=== PATIENT | female | born 1965 | race Caucasian/White ===

== ENCOUNTER 2016-08-19 05:39 | Day surgery (SDC) | payer BC ==
[2016-08-19] MEDS ORDERED: Lactated Ringers 1,000 ML IV SCH (06:30)
[2016-08-19] MEDS ORDERED: Ketamine HCl 50 MG/ML IV ONE (08:00)
[2016-08-19] MEDS ORDERED: DIPRIVAN 200 MG/20 ML IV ONE (08:00)
[2016-08-19 09:02] VITALS: O2SAT 98
--- NOTE | 2016-08-19 09:33 | OP ---
SURGERY DATE/TIME: 08/19/2016 0743 PREOPERATIVE DIAGNOSIS: Screening colonoscopy. POSTOPERATIVE DIAGNOSIS: Sigmoid colon polyp. PROCEDURE: Colonoscopy. SURGEON: Christiano Macias M.D. ANESTHESIA: MAC by Omer Jefferson CRNA. ESTIMATED BLOOD LOSS: Minimal. SPECIMENS: One hot forceps polypectomy from sigmoid colon. DESCRIPTION OF PROCEDURE: After informed written consent was obtained, the patient was taken to the endoscopy suite. She underwent monitored anesthesia and digital rectal exam showed normal sphincter tone. The scope was inserted in the rectum and sequentially the entire colonic mucosa was traversed. The level of cecum was reached and verified with direct visualization of ileocecal valve. There was a sessile polyp present in the sigmoid colon area this was grasped with forceps at its base and cautery was used to cauterize the lesion. Good hemostasis was achieved and the entire lesion was removed. Upon further withdrawal no other abnormalities were encountered. Retroflexion was performed prior to withdrawal. The scope was removed and the patient was transferred to the recovery room in excellent condition.
[2016-08-19 11:12] VITALS: BP 136/79; PULSE 63
== END 2016-08-19 09:35 | disposition home or self-care (01) ==
LOC: SDC 05:39
PROVIDERS: ATTEND Family Medicine
PROC: 0DBN8ZX Excision of Sigmoid Colon, Via Natural or Artificial Opening Endoscopic, Diagnostic (ICD-10-PCS; principal; 2016-08-19)
DX: D12.5 Benign neoplasm of sigmoid colon (principal)
CPT/HCPCS: 00810; 36415; 88305; J2704

== ENCOUNTER 2017-06-20 11:02 | Emergency (ER) | payer BC ==
[2017-06-20 11:12] VITALS: BP 161/89
--- NOTE | 2017-06-20 11:15 | ERPHSYRPT ---
- History of Present Illness Time Seen by Provider: 06/20/17 11:10 Source: patient Exam Limitations: no limitations Physician History: He the patient is a 52-year-old female complaining that she slipped on ice yesterday evening, falling, and injuring her left foot when it was caught underneath her during the fall. 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 Today it is hurting more and slightly swollen. She takes Celebrex for arthritis and she took a [place] that she had left over from dental work. Her past medical history significant for GERD and arthritis. Occurred: yesterday Reason for Fall: slipped, fell from standing pos Injuries/Pain Location: lower extremity Loss of Consciousness: no loss of consciousness Quality: sharpness Severity of Pain-Max: moderate Severity of Pain-Current: moderate Modifying Factors: Improves With: pain medication. Worsens With: cold therapy Associated Symptoms (Fall): denies symptoms Allergies/Adverse Reactions: No Known Drug Allergies Allergy (Verified 06/20/17 11:13) Home Medications: No Reportable Medications [No Reported Medications] 06/20/17 [History] Hx Tetanus, Diphtheria Vaccination/Date Given: Yes Hx Influenza Vaccination/Date Given: No Hx Pneumococcal Vaccination/Date Given: No - Review of Systems Constitutional: No Fever, No Chills Eyes: No Symptoms Ears, Nose, & Throat: No Symptoms Respiratory: No Cough, No Dyspnea Cardiac: No Chest Pain, No Edema, No Syncope Abdominal/Gastrointestinal: No Symptoms Genitourinary Symptoms: No Dysuria Musculoskeletal: Fall, Injury Skin: No Rash Neurological: No Dizziness, No Focal Weakness, No Sensory Changes Psychological: No Symptoms Endocrine: No Symptoms Hematologic/Lymphatic: No Symptoms Immunological/Allergic: No Symptoms All Other Systems: Reviewed and Negative - Past Medical History Pertinent Past Medical History: Yes Neurological History: Migraines ENT History: No Pertinent History Cardiac History: No Pertinent History Respiratory History: No Pertinent History Endocrine Medical History: No Pertinent History Musculoskeletal History: Arthritis GI Medical History: GERD, Gallbladder Disease, Hernia, Other History: No Pertinent History Psycho-Social History: No Pertinent History Female Reproductive Disorders: No Pertinent History Other Medical History: gall bladder, tonsils, adenoids removed. Appendix burst - Past Surgical History Past Surgical History: Yes Neuro Surgical History: No Pertinent History Cardiac: No Pertinent History Respiratory: No Pertinent History Gastrointestinal: Appendectomy, Cholecystectomy Genitourinary: No Pertinent History Musculoskeletal: No Pertinent History Female Surgical History: Tubal Ligation Other Surgical History: T&A, - Social History Smoking Status: Never smoker Exposure to second hand smoke: No Drug Use: none Patient Lives Alone: No - Nursing Vital Signs Nursing Vital Signs: Initial Vital Signs Temperature 98.1 F 06/20/17 11:09 Pulse Rate 90 06/20/17 11:09 Respiratory Rate 20 06/20/17 11:09 Blood Pressure 161/89 06/20/17 11:09 O2 Sat by Pulse Oximetry 97 06/20/17 11:09 Pain Scale Pain Intensity 10 - Tyler Coma Score Best Eye Response ([place]): (4) open spontaneously Best Verbal Response ([place]): (5) oriented Best Motor Response ([place]): (6) obeys commands [place] Total: 15 - Physical Exam General Appearance: mild distress Head Injury: no evidence of injury Eye Exam: PERRL/EOMI ENT Exam: airway nml Neck Exam: normal inspection, No tenderness Respiratory/Chest Exam: normal breath sounds, No chest tenderness, No respiratory distress Cardiovascular Exam: normal heart sounds, regular rate/rhythm Gastrointestinal Exam: soft, No tenderness, No distention, No guarding, No ecchymosis Rectal Exam: not done Back Exam: normal inspection, No vertebral tenderness Extremity Exam: limited range of motion, weight bearing, swelling, tenderness ( left mid foot) Neurologic Exam: alert, oriented x 3, cooperative, sensation nml, No motor deficits Skin Exam: normal color, warm, dry SpO2 Interpretation: normal Oxygen Delivery: Room Air - Radiology Exams Left Ankle X-ray Interpretation: Interpreted by me, Other (avulsion fracture off of talus) Left Foot X-ray Interpretation: Interpreted by me, Other (avulsion fracture off of talus) Ordered Tests: Active Orders 24 hr Category Date Time Status Jon Bandage Application -[facility] STAT Care 06/20/17 12:04 Active ANKLE (3 VIEWS) Stat Exams 06/20/17 11:17 Ordered FOOT (MINIMUM 3 VIEWS) Stat Exams 06/20/17 11:17 Ordered - Progress Progress: pain not gone completely Counseled pt/family regarding: rad results - Departure Time of Disposition: 12:38 Departure Disposition: Home Clinical Impression: Avulsion fracture of left talus Condition: Stable Critical Care Time: No Referrals: EDDIE MCCALLUM MD [Primary Care Provider] - Additional Instructions: You have an avulsion fracture of your left talus bone in your foot. You're placed in an Jon wrap. Use crutches to avoid weightbearing. You have a work excuse. Continue to take Celebrex. Take Tylenol 3 one tablet every 6 hours as needed for pain. Elevate the foot to help reduce swelling. Apply ice to the area for 10-15 minutes 3 times a day for 2-3 days. Follow up this week with your primary medical doctor.
[2017-06-20 12:28] VITALS: PULSE 87; O2SAT 99
--- NOTE | 2017-06-20 19:38 | XRAY ---
Indication: Pain following fall. Comparison: None 3 views of the left ankle demonstrates tiny heel spurs and distal fibular healed fibrous cortical defect. Lateral view demonstrates tiny minimally displaced cortical fracture involving the anterior talus with soft tissue swelling. No other bony, articular, or soft tissue abnormalities.
--- NOTE | 2017-06-20 19:41 | XRAY ---
Indication: Pain following fall. Comparison: None 3 nonweightbearing views of the left foot demonstrates tiny heel spurs and tiny cuboid accessory ossicles. Lateral view demonstrates tiny cortical fracture involving the anterior talus with soft tissue swelling. No other bony, articular, or soft tissue abnormalities.
== END 2017-06-20 13:00 | disposition home or self-care (01) ==
LOC: ED 11:02
DX: S92.152A Displaced avulsion fracture (chip fracture) of left talus, initial encounter for closed fracture (principal); W00.0XXA Fall on same level due to ice and snow, initial encounter
CPT/HCPCS: 73610; 73630; 99283

== ENCOUNTER 2017-11-07 09:41 | Observation (INO) | payer BC ==
[2017-11-07] MEDS ORDERED: BABY ASPIRIN 81 MG CHEW PO ONE (09:53)
[2017-11-07] MEDS ORDERED: BABY ASPIRIN 81 MG CHEW ONE (09:59)
--- NOTE | 2017-11-07 09:59 | ERPHSYRPT ---
- History of Present Illness Time Seen by Provider: 11/07/17 09:53 Source: patient Exam Limitations: no limitations Patient Subjective Stated Complaint: pt here for pain to epigastric and states it radiates to jaw and left arm with erick sob and tingling to arm, states has epiosode like this last night Triage Nursing Assessment: pt arrived pov, walked in, anxious, resp labored at times. chest clear, no edema Physician History: 52-year-old white female arrives with complaint of chest pain described as a pressure which begins in her low sternal region and radiates to her neck symptoms for 2 hours associated with shortness of breath no nausea no vomiting. Patient states she had similar pain which lasted 2 hours yesterday and resolved spontaneously. Past medical history includes migraines, GERD, gallbladder, hernia. Past surgical history includes cholecystectomy, tonsillectomy, appendectomy, tubal ligation. Social history patient denies tobacco or illicit drug use she states she has an occasional alcohol use. Timing/Duration: other (patient with 2 hours of chest pain yesterday .evening , which which resolved then recurred 2 hours ago.) Modifying Factors: Improves With: nothing Associated Symptoms: shortness of breath, chest pain, other (parasthesia left arm), No nausea, No vomiting, No abdominal pain, No heartburn, No diaphoresis, No cough, No chills, No fever, No headaches, No loss of appetite, No malaise, No rash, No syncope, No seizure, No weakness Allergies/Adverse Reactions: No Known Drug Allergies Allergy (Verified 11/07/17 09:55) Home Medications: Celecoxib 200 mg DAILY 11/07/17 [History] Omeprazole 40 mg DAILY 11/07/17 [History] Hx Tetanus, Diphtheria Vaccination/Date Given: Yes Hx Influenza Vaccination/Date Given: Yes Hx Pneumococcal Vaccination/Date Given: No Immunizations Up to Date: Yes - Review of Systems Constitutional: No Fever, No Chills Eyes: No Symptoms Ears, Nose, & Throat: No Symptoms Respiratory: Dyspnea, No Cough, No Cyanosis, No Dyspnea on Exertion (GARCIA), No Stridor, No Wheezing Cardiac: Chest Pain, No Edema, No Palpitations, No Syncope, No Orthopnea, No PND , No Other Abdominal/Gastrointestinal: No Abdominal Pain, No Nausea, No Vomiting, No Diarrhea Genitourinary Symptoms: No Dysuria Musculoskeletal: No Back Pain, No Neck Pain Skin: No Rash Neurological: No Dizziness, No Focal Weakness, No Sensory Changes Psychological: No Symptoms Endocrine: No Symptoms All Other Systems: Reviewed and Negative - Past Medical History Pertinent Past Medical History: Yes Neurological History: No Pertinent History ENT History: No Pertinent History Cardiac History: No Pertinent History Respiratory History: No Pertinent History Endocrine Medical History: No Pertinent History Musculoskeletal History: Osteoarthritis GI Medical History: GERD, Gallbladder Disease, Hernia, Other History: No Pertinent History Psycho-Social History: No Pertinent History Female Reproductive Disorders: No Pertinent History Other Medical History: back pain - Past Surgical History Past Surgical History: Yes Neuro Surgical History: No Pertinent History Cardiac: No Pertinent History Respiratory: No Pertinent History Gastrointestinal: Appendectomy, Cholecystectomy Genitourinary: No Pertinent History Musculoskeletal: No Pertinent History Female Surgical History: Tubal Ligation Other Surgical History: T&A, - Social History Smoking Status: Never smoker Exposure to second hand smoke: Yes Drug Use: none Patient Lives Alone: No - Female History Hx Last Menstrual Period: post Hx Now: No - Nursing Vital Signs Nursing Vital Signs: Initial Vital Signs Temperature 97.9 F 11/07/17 09:42 Pulse Rate 78 11/07/17 09:42 Respiratory Rate 22 11/07/17 09:42 Blood Pressure 167/109 11/07/17 09:42 O2 Sat by Pulse Oximetry 99 11/07/17 09:42 Pain Scale Pain Intensity 3 - Physical Exam General Appearance: other (well-developed well-nourished white female anxious oriented 3 alert) Eye Exam: PERRL/EOMI, eyes nml inspection Ears, Nose, Throat Exam: normal ENT inspection, TMs normal, pharynx normal, moist mucous membranes Neck Exam: normal inspection, non-tender, supple, full range of motion Respiratory Exam: normal breath sounds, lungs clear, No respiratory distress Cardiovascular Exam: regular rate/rhythm, normal heart sounds, normal peripheral pulses Gastrointestinal/Abdomen Exam: soft, normal bowel sounds, No tenderness, No mass Back Exam: normal inspection, normal range of motion, No CVA tenderness, No vertebral tenderness Extremity Exam: normal inspection, normal range of motion, pelvis stable Neurologic Exam: alert, oriented x 3, cooperative, philosophy faculty II-XII nml as tested, normal mood/affect, nml cerebellar function, nml station & gait, sensation nml, No motor deficits Skin Exam: normal color, warm, dry, No rash SpO2 Interpretation: normal (99%) SpO2: 99 Oxygen Delivery: Room Air - Course Nursing assessment & vital signs reviewed: Yes EKG Interpreted by Me: RATE (87 bpm), Sinus Rhythm, Left [place] Deviation, Other ( EKG: Sinus rhythm, 87 bpm, artifact present, left axis deviation, no acute ST or T wave changes noted.) - Radiology Exams Chest X-ray Interpretation: Interpreted by me (no acute disease process noted) - CT Exams Chest CT Interpretation: Tele-radiologist Report (CTA chest: Impression: 1 thyromegaly with hypodense areas in both lobes, probable complex cyst which could be further evaluated with sonography if clinically indicateD no evidence of PE or other significant cardiopulmonary abnormality) Ordered Tests: Active Orders 24 hr Category Date Time Status Solution Coordinator STAT Care 11/07/17 09:53 Active EKG-ER Only STAT Care 11/07/17 09:53 Active IV Insertion STAT Care 11/07/17 09:53 Active Pulse Oximetry (ED) STAT Care 11/07/17 09:53 Active CHEST 1 VIEW (PORTABLE) Stat Exams 11/07/17 10:14 Taken CHEST WITH CONTRAST [CT] Stat Exams 11/07/17 11:49 Taken AMYLASE Stat Lab 11/07/17 10:00 Completed CBC W DIFF Stat Lab 11/07/17 10:00 Completed CMP Stat Lab 11/07/17 10:00 Completed D-DIMER QUANTITATION Stat Lab 11/07/17 10:00 Completed LIPASE Stat Lab 11/07/17 10:00 Completed PROTIME WITH INR Stat Lab 11/07/17 10:00 Completed PTT Stat Lab 11/07/17 10:00 Completed TROPONIN Q3H Lab 11/07/17 10:00 Completed TROPONIN Q3H Lab 11/07/17 12:51 Completed TROPONIN Q3H Lab 11/07/17 16:00 Ordered TROPONIN Q3H Lab 11/07/17 19:00 Ordered TROPONIN Q3H Lab 11/07/17 22:00 Ordered Medication Summary Discontinued Medications Generic Name Dose Route Start Last Admin Trade Name Freq PRN Reason Stop Dose Admin Aspirin 324 mg 11/07/17 09:53 11/07/17 10:00 Baby Aspirin 81 Mg Chew PO 11/07/17 09:54 324 mg STAT ONE Administration Aspirin Confirm 11/07/17 09:59 Baby Aspirin 81 Mg Chew Administered 11/07/17 10:00 Dose 324 mg .ROUTE .STK-MED ONE Morphine Sulfate 4 mg 11/07/17 10:43 11/07/17 10:49 Morphine Sulfate 4 Mg Inj IV 11/07/17 10:44 4 mg STAT ONE Administration Morphine Sulfate Confirm 11/07/17 10:48 Morphine Sulfate 4 Mg Inj Administered 11/07/17 10:49 Dose 4 mg .ROUTE .STK-MED ONE Ondansetron HCl 4 mg 11/07/17 10:43 11/07/17 10:50 Zofran 4 Mg/2 Ml Vial IV 11/07/17 10:44 4 mg STAT ONE Administration Ondansetron HCl Confirm 11/07/17 10:48 Zofran 4 Mg/2 Ml Vial Administered 11/07/17 10:49 Dose 4 mg .ROUTE .STK-MED ONE Lab/Rad Data: Laboratory Result Diagrams 11/07/17 10:00 11/07/17 10:00 Laboratory Results 11/07/17 11/07/17 11/07/17 Range/Units 12:51 10:00 10:00 WBC (4.0-10.5) K/mm3 RBC (4.1-5.4) M/mm3 Hgb (12.0-16.0) gm/dl Hct (35-47) % MCV (78-100) fl MCH (26-32) pg MCHC (32-36) g/dl RDW (11.5-14.0) % Plt Count (150-450) K/mm3 MPV (6-9.5) fl Gran % (36.0-66.0) % Eos # (Auto) (0-0.5) Absolute Lymphs (auto) (1.0-4.6) Absolute Monos (auto) (0.0-1.3) Lymphocytes % (24.0-44.0) % Monocytes % (0.0-12.0) % Eosinophils % (0.00-5.0) % Basophils % (0.0-0.4) % Absolute Granulocytes (1.4-6.9) Basophils # (0-0.4) PT 11.3 (9.95-12.35) SECONDS INR 0.97 (0.8-3.0) APTT 28.3 (25.3-37.0) SECONDS D-Dimer 528 H* (215-500) ng/mL Sodium (137-145) mmol/L Potassium (3.5-5.1) mmol/L Chloride (98-107) mmol/L Carbon Dioxide (22-30) mmol/L Anion Gap (5-15) MEQ/L BUN (7-17) mg/dL Creatinine (0.52-1.04) mg/dL Estimated GFR ML/MIN Glucose (74-106) mg/dL Calcium (8.4-10.2) mg/dL Total Bilirubin (0.2-1.3) mg/dL AST (14-36) U/L ALT (0-35) U/L Alkaline Phosphatase (38-126) U/L Troponin I < 0.012 < 0.012 (0.000-0.034) ng/mL Serum Total Protein (6.3-8.2) g/dL Albumin (3.5-5.0) g/dL Amylase (30-110) U/L Lipase (23-300) U/L 11/07/17 11/07/17 Range/Units 10:00 10:00 WBC 5.8 (4.0-10.5) K/mm3 RBC 4.92 (4.1-5.4) M/mm3 Hgb 15.2 (12.0-16.0) gm/dl Hct 44.8 (35-47) % MCV 91.1 (78-100) fl MCH 30.9 (26-32) pg MCHC 33.9 (32-36) g/dl RDW 13.4 (11.5-14.0) % Plt Count 384 (150-450) K/mm3 MPV 11.2 H (6-9.5) fl Gran % 54.0 (36.0-66.0) % Eos # (Auto) 0.16 (0-0.5) Absolute Lymphs (auto) 1.74 (1.0-4.6) Absolute Monos (auto) 0.72 (0.0-1.3) Lymphocytes % 30.2 (24.0-44.0) % Monocytes % 12.5 H (0.0-12.0) % Eosinophils % 2.8 (0.00-5.0) % Basophils % 0.5 (0.0-0.4) % Absolute Granulocytes 3.11 (1.4-6.9) Basophils # 0.03 (0-0.4) PT (9.95-12.35) SECONDS INR (0.8-3.0) APTT (25.3-37.0) SECONDS D-Dimer (215-500) ng/mL Sodium 141 (137-145) mmol/L Potassium 3.9 (3.5-5.1) mmol/L Chloride 106 (98-107) mmol/L Carbon Dioxide 25 (22-30) mmol/L Anion Gap 14.4 (5-15) MEQ/L BUN 11 (7-17) mg/dL Creatinine 0.75 (0.52-1.04) mg/dL Estimated GFR > 60.0 ML/MIN Glucose 87 (74-106) mg/dL Calcium 9.4 (8.4-10.2) mg/dL Total Bilirubin 0.50 (0.2-1.3) mg/dL AST 24 (14-36) U/L ALT 21 (0-35) U/L Alkaline Phosphatase 106 (38-126) U/L Troponin I (0.000-0.034) ng/mL Serum Total Protein 7.5 (6.3-8.2) g/dL Albumin 4.5 (3.5-5.0) g/dL Amylase 56 (30-110) U/L Lipase 37 (23-300) U/L - Progress Progress: improved Progress Note: 11/07/17 13:04 This is a 52-year-old white female with history of migraines, GERD, gallbladder disease she arrives with complaint of substernal chest pain described as a pressure radiating up to her neck and radiate to her left arm associated with some paresthesias to her left arm this began initially last night around 10:00 lasted 2 hours resolved then occurred approximately 2 hours prior to presentation this morning. She states she did have shortness of breath she denies any nauseousness. Patient with the EKG that showed normal sinus rhythm 87 bpm left axis deviation no acute ST or T wave changes are noted. Patient's labs are essentially normal. Patient's troponin initial is normal. D-dimer was mildly elevated CT of the chest is remarkable for thyromegaly with hypodense areas in both lobes probably complex cyst which could be further evaluated with sonography of clinically indicated. There is no evidence of PE or other significant acute cardiopulmonary abnormality. Patient was given morphine for pain as well as her aspirin. She is rechecked. He states she still has some mild pain in the sternal region. I've discussed the case with Dr. Pulido will place patient on observation telemetry. Will continue serial cardiac enzymes continue morphine. - Departure Time of Disposition: 13:07 Departure Disposition: Observation Clinical Impression: Chest pain Qualifiers: Chest pain type: unspecified Qualified Code(s): R07.9 - Chest pain, unspecified Condition: Fair Critical Care Time: No Referrals: EDDIE MCCALLUM MD [Primary Care Provider] -
[2017-11-07 10:20] LABS: BASOPHIL % 0.5 % (0.0-0.4); Basophil (Absolute #) 0.03 (0-0.4); Eosinophil % 2.8 % (0.00-5.0); Eosinophil (Absolute #) 0.16 (0-0.5); Granulocyte Absolute (ANC) 3.11 (1.4-6.9); Hematocrit 44.8 % (35-47); Hemoglobin 15.2 gm/dl (12.0-16.0); Lymphocyte (Absolute #) 1.74 (1.0-4.6); Lymphocytes % 30.2 % (24.0-44.0); Mean Cell Volume 91.1 fl (78-100); Mean Corpuscular Hemoglobin 30.9 pg (26-32); Mean Corpuscular Hgb Concent. 33.9 g/dl (32-36); Mean Platelet Volume 11.2 fl (6-9.5); Monocyte (Absolute #) 0.72 (0.0-1.3); Monocytes % 12.5 % (0.0-12.0); Platelet Count 384 K/mm3 (150-450); Red Blood Count 4.92 M/mm3 (4.1-5.4); Red Cell Distribution Width 13.4 % (11.5-14.0); White Blood Count 5.8 K/mm3 (4.0-10.5)
[2017-11-07 10:21] LABS: INR 0.97 (0.8-3.0)
[2017-11-07 10:22] LABS: PTT 28.3 SECONDS (25.3-37.0)
[2017-11-07 10:24] LABS: ALBUMIN 4.5 g/dL (3.5-5.0); ALKALINE PHOSPHATASE 106 U/L (38-126); AMYLASE 56 U/L (30-110); ANION GAP 14.4 MEQ/L (5-15); BLOOD UREA NITROGEN 11 mg/dL (7-17); CHLORIDE 106 mmol/L (98-107); Calcium 9.4 mg/dL (8.4-10.2); Carbon Dioxide 25 mmol/L (22-30); Creatinine 1 0.75 mg/dL (0.52-1.04); Glucose 87 mg/dL (74-106); LIPASE 37 U/L (23-300); Potassium 3.9 mmol/L (3.5-5.1); SGOT/AST 24 U/L (14-36); SGPT/ALT 21 U/L (0-35); SODIUM 141 mmol/L (137-145); Total Protein 7.5 g/dL (6.3-8.2)
[2017-11-07] MEDS ORDERED: MORPHINE SULFATE 4 MG INJ IV ONE (10:43)
[2017-11-07] MEDS ORDERED: Zofran 4 MG/2 ML VIAL IV ONE (10:43)
[2017-11-07] MEDS ORDERED: Zofran 4 MG/2 ML VIAL ONE (10:48)
[2017-11-07] MEDS ORDERED: MORPHINE SULFATE 4 MG INJ ONE (10:48)
[2017-11-07] MEDS ORDERED: Zofran 4 MG/2 ML VIAL IV PRN (14:11)
[2017-11-07] MEDS ORDERED: NITRO-BID 2% UD PACKETS TOP ONE (14:42)
--- NOTE | 2017-11-07 21:41 | XRAY ---
Indication: Chest pain, short of breath, and elevated d-dimer. Multiple contiguous axial images obtained through the chest using 80 cc Isovue 370 contrast and PE protocol. Comparison: None There is satisfactory opacification of the pulmonary arteries to include the lobar and segmental branches. No filling defect or pulmonary embolus. Heart is not enlarged. Aorta is normal in course and caliber without aneurysm/dissection. Distal right paratracheal calcified node. No pathologic mediastinal/hilar lymphadenopathy. Small hiatal hernia. Visualized thyroid gland enlarged with multiple bilateral hypodense nodules/cysts. Examination of the lung parenchyma demonstrates very minimal bilateral dependent atelectasis and minimal left base fibrosis/scarring. No suspicious pulmonary mass, infiltrate, or effusion. Bony thorax intact with minimal degenerative changes throughout the spine. Limited upper abdomen including adrenal glands unremarkable. Impression: 1. Negative pulmonary embolus. No acute cardiopulmonary abnormalities. 2. Small hiatal hernia. 3. Thyromegaly with multiple bilateral hypodense nodules/cysts. Thyroid sonogram may yield further information if clinically warranted. Comment: Preliminary interpretation was made by C. No discrepancy. CTDI 26.67
--- NOTE | 2017-11-07 21:41 | XRAY ---
Indication: Chest pain. Comparison: January 02, 2015. Portable chest remains clear. Heart and mediastinal structures within normal limits. Bony thorax intact. Impression: Stable nonacute chest.
[2017-11-07] MEDS: TYLENOL 325 MG PO PRN (23:39)
[2017-11-08] MEDS: MORPHINE SULFATE 4 MG INJ IV PRN ×3 (06:23→14:59)
[2017-11-08 06:38] LABS: BASOPHIL % 0.6 % (0.0-0.4); Basophil (Absolute #) 0.03 (0-0.4); Eosinophil % 3.1 % (0.00-5.0); Eosinophil (Absolute #) 0.16 (0-0.5); Granulocyte Absolute (ANC) 3.46 (1.4-6.9); Hematocrit 40.2 % (35-47); Hemoglobin 13.5 gm/dl (12.0-16.0); Lymphocyte (Absolute #) 1.04 (1.0-4.6); Lymphocytes % 19.8 % (24.0-44.0); Mean Cell Volume 92.8 fl (78-100); Mean Corpuscular Hemoglobin 31.2 pg (26-32); Mean Corpuscular Hgb Concent. 33.6 g/dl (32-36); Mean Platelet Volume 11.3 fl (6-9.5); Monocyte (Absolute #) 0.55 (0.0-1.3); Monocytes % 10.5 % (0.0-12.0); Platelet Count 333 K/mm3 (150-450); Red Blood Count 4.33 M/mm3 (4.1-5.4); Red Cell Distribution Width 13.4 % (11.5-14.0); White Blood Count 5.2 K/mm3 (4.0-10.5)
[2017-11-08 06:45] LABS: ALBUMIN 3.9 g/dL (3.5-5.0); ALKALINE PHOSPHATASE 88 U/L (38-126); ANION GAP 11.3 MEQ/L (5-15); BLOOD UREA NITROGEN 11 mg/dL (7-17); CHLORIDE 106 mmol/L (98-107); Calcium 8.9 mg/dL (8.4-10.2); Carbon Dioxide 27 mmol/L (22-30); Creatinine 1 0.68 mg/dL (0.52-1.04); Glucose 98 mg/dL (74-106); Potassium 3.7 mmol/L (3.5-5.1); SGOT/AST 22 U/L (14-36); SGPT/ALT 19 U/L (0-35); SODIUM 140 mmol/L (137-145); Total Protein 6.6 g/dL (6.3-8.2)
[2017-11-08] MEDS ORDERED: Sodium Chloride 0.9% 10 ML FLUSH Syringe IV PRN (08:11)
--- NOTE | 2017-11-08 08:48 | PCM.HP ---
History of Present Illness - Chief Complaint Chief Complaint: chest pain History of Present Illness: is a 52 year old female who reported to the ER with a 2 day history of pressure and heaviness in the chest. She denies nausea, vomiting, shortness of breath or cough. Had some relief with nitro but caused a terrible headache, chest is still hurting. no burning in the chest. - Review of Systems Constitutional: No Fever, No Chills Respiratory: No Cough, No Short Of Breath Cardiac: Chest Pain Abdominal/Gastrointestinal: No Abdominal Pain, No Nausea, No Vomiting, No Diarrhea Genitourinary Symptoms: No Dysuria Skin: No Rash All Other Systems: Reviewed and Negative Medications & Allergies Home Medications: Home Medication List Celecoxib 200 mg DAILY 11/07/17 [History Confirmed 11/07/17] Omeprazole 40 mg DAILY 11/07/17 [History Confirmed 11/07/17] Allergies/Adverse Reactions: Allergies Allergy/AdvReac Type Severity Reaction Status Date / Time No Known Drug Allergies Allergy Verified 11/07/17 09:55 - Past Medical History Past Medical History: Yes Neurological History: No Pertinent History ENT History: No Pertinent History Cardiac History: No Pertinent History Respiratory History: No Pertinent History Endocrine Medical History: No Pertinent History Musculoskelatal History: Osteoarthritis GI Medical History: GERD, Gallbladder Disease, Hernia, Other History: No Pertinent History Pyscho-Social History: No Pertinent History Reproductive Disorders: No Pertinent History Comment: back pain - Female History Hx Last Menstrual Period: post Are you now?: No - Past Surgical History Past Surgical History: Yes Neuro Surgical History: No Pertinent History Cardiac History: No Pertinent History Respiratory Surgery: No Pertinent History GI Surgical History: Appendectomy, Cholecystectomy Genitourinary Surgical Hx: No Pertinent History Musculskeletal Surgical Hx: No Pertinent History Female Surgical History: Tubal Ligation Other Surgical History: T&A, - Social History Smoking Status: Never smoker Exposure to second hand smoke: Yes Alcohol: None Drug Use: none - Physical Exam Vital Signs: Vital Signs - 24 hr Temp Pulse Pulse Resp BP Pulse Ox 11/08/17 07:31 98 11/08/17 07:16 98.2 F 51 L 16 139/67 100 11/08/17 06:20 72 141/84 100 11/08/17 04:04 97.6 F 69 12 127/58 99 11/08/17 00:07 98.0 F 46 L 16 121/55 99 11/07/17 19:56 98.0 F 55 L 14 116/64 98 11/07/17 15:00 98.1 F 57 L 18 152/70 96 11/07/17 14:11 98.1 F 57 L 18 152/70 96 11/07/17 13:50 98.1 F 57 L 18 152/70 96 11/07/17 13:38 99 11/07/17 13:18 63 18 135/84 95 11/07/17 10:54 57 L 18 118/83 98 11/07/17 09:57 100 11/07/17 09:54 70 11/07/17 09:42 97.9 F 78 22 167/109 99 Oxygen-Last 24 hours O2 Percentage 2 Liters = 28% O2 Percentage 2 Liters = 28% O2 Percentage 2 Liters = 28% O2 Percentage 2 Liters = 28% O2 Percentage 2 Liters = 28% General Appearance: no apparent distress, alert Eye Exam: PERRL/EOMI, eyes nml inspection Respiratory Exam: normal breath sounds, lungs clear, No respiratory distress Cardiovascular Exam: regular rate/rhythm, normal heart sounds, normal peripheral pulses Gastrointestinal/Abdomen Exam: soft, normal bowel sounds, No tenderness, No mass Extremity Exam: normal inspection, normal range of motion, pelvis stable Skin Exam: normal color, warm, dry, No rash Results - Labs Lab/Micro Results: Lab Results-Last 24 Hours 11/07/17 11/07/17 11/07/17 Range/Units 10:00 10:00 10:00 WBC 5.8 (4.0-10.5) K/mm3 RBC 4.92 (4.1-5.4) M/mm3 Hgb 15.2 (12.0-16.0) gm/dl Hct 44.8 (35-47) % MCV 91.1 (78-100) fl MCH 30.9 (26-32) pg MCHC 33.9 (32-36) g/dl RDW 13.4 (11.5-14.0) % Plt Count 384 (150-450) K/mm3 MPV 11.2 H (6-9.5) fl Gran % 54.0 (36.0-66.0) % Eos # (Auto) 0.16 (0-0.5) Absolute Lymphs (auto) 1.74 (1.0-4.6) Absolute Monos (auto) 0.72 (0.0-1.3) Lymphocytes % 30.2 (24.0-44.0) % Monocytes % 12.5 H (0.0-12.0) % Eosinophils % 2.8 (0.00-5.0) % Basophils % 0.5 (0.0-0.4) % Absolute Granulocytes 3.11 (1.4-6.9) Basophils # 0.03 (0-0.4) PT 11.3 (9.95-12.35) SECONDS INR 0.97 (0.8-3.0) APTT 28.3 (25.3-37.0) SECONDS D-Dimer 528 H* (215-500) ng/mL Sodium 141 (137-145) mmol/L Potassium 3.9 (3.5-5.1) mmol/L Chloride 106 (98-107) mmol/L Carbon Dioxide 25 (22-30) mmol/L Anion Gap 14.4 (5-15) MEQ/L BUN 11 (7-17) mg/dL Creatinine 0.75 (0.52-1.04) mg/dL Estimated GFR > 60.0 ML/MIN Glucose 87 (74-106) mg/dL Calcium 9.4 (8.4-10.2) mg/dL Total Bilirubin 0.50 (0.2-1.3) mg/dL AST 24 (14-36) U/L ALT 21 (0-35) U/L Alkaline Phosphatase 106 (38-126) U/L Troponin I (0.000-0.034) ng/mL Serum Total Protein 7.5 (6.3-8.2) g/dL Albumin 4.5 (3.5-5.0) g/dL Amylase 56 (30-110) U/L Lipase 37 (23-300) U/L 11/07/17 11/07/17 11/07/17 Range/Units 10:00 12:51 16:10 WBC (4.0-10.5) K/mm3 RBC (4.1-5.4) M/mm3 Hgb (12.0-16.0) gm/dl Hct (35-47) % MCV (78-100) fl MCH (26-32) pg MCHC (32-36) g/dl RDW (11.5-14.0) % Plt Count (150-450) K/mm3 MPV (6-9.5) fl Gran % (36.0-66.0) % Eos # (Auto) (0-0.5) Absolute Lymphs (auto) (1.0-4.6) Absolute Monos (auto) (0.0-1.3) Lymphocytes % (24.0-44.0) % Monocytes % (0.0-12.0) % Eosinophils % (0.00-5.0) % Basophils % (0.0-0.4) % Absolute Granulocytes (1.4-6.9) Basophils # (0-0.4) PT (9.95-12.35) SECONDS INR (0.8-3.0) APTT (25.3-37.0) SECONDS D-Dimer (215-500) ng/mL Sodium (137-145) mmol/L Potassium (3.5-5.1) mmol/L Chloride (98-107) mmol/L Carbon Dioxide (22-30) mmol/L Anion Gap (5-15) MEQ/L BUN (7-17) mg/dL Creatinine (0.52-1.04) mg/dL Estimated GFR ML/MIN Glucose (74-106) mg/dL Calcium (8.4-10.2) mg/dL Total Bilirubin (0.2-1.3) mg/dL AST (14-36) U/L ALT (0-35) U/L Alkaline Phosphatase (38-126) U/L Troponin I < 0.012 < 0.012 < 0.012 (0.000-0.034) ng/mL Serum Total Protein (6.3-8.2) g/dL Albumin (3.5-5.0) g/dL Amylase (30-110) U/L Lipase (23-300) U/L 11/07/17 11/07/17 11/08/17 Range/Units 19:00 22:10 05:43 WBC 5.2 (4.0-10.5) K/mm3 RBC 4.33 (4.1-5.4) M/mm3 Hgb 13.5 (12.0-16.0) gm/dl Hct 40.2 (35-47) % MCV 92.8 (78-100) fl MCH 31.2 (26-32) pg MCHC 33.6 (32-36) g/dl RDW 13.4 (11.5-14.0) % Plt Count 333 (150-450) K/mm3 MPV 11.3 H (6-9.5) fl Gran % 66.0 (36.0-66.0) % Eos # (Auto) 0.16 (0-0.5) Absolute Lymphs (auto) 1.04 (1.0-4.6) Absolute Monos (auto) 0.55 (0.0-1.3) Lymphocytes % 19.8 L (24.0-44.0) % Monocytes % 10.5 (0.0-12.0) % Eosinophils % 3.1 (0.00-5.0) % Basophils % 0.6 (0.0-0.4) % Absolute Granulocytes 3.46 (1.4-6.9) Basophils # 0.03 (0-0.4) PT (9.95-12.35) SECONDS INR (0.8-3.0) APTT (25.3-37.0) SECONDS D-Dimer (215-500) ng/mL Sodium (137-145) mmol/L Potassium (3.5-5.1) mmol/L Chloride (98-107) mmol/L Carbon Dioxide (22-30) mmol/L Anion Gap (5-15) MEQ/L BUN (7-17) mg/dL Creatinine (0.52-1.04) mg/dL Estimated GFR ML/MIN Glucose (74-106) mg/dL Calcium (8.4-10.2) mg/dL Total Bilirubin (0.2-1.3) mg/dL AST (14-36) U/L ALT (0-35) U/L Alkaline Phosphatase (38-126) U/L Troponin I < 0.012 < 0.012 (0.000-0.034) ng/mL Serum Total Protein (6.3-8.2) g/dL Albumin (3.5-5.0) g/dL Amylase (30-110) U/L Lipase (23-300) U/L 11/08/17 Range/Units 05:43 WBC (4.0-10.5) K/mm3 RBC (4.1-5.4) M/mm3 Hgb (12.0-16.0) gm/dl Hct (35-47) % MCV (78-100) fl MCH (26-32) pg MCHC (32-36) g/dl RDW (11.5-14.0) % Plt Count (150-450) K/mm3 MPV (6-9.5) fl Gran % (36.0-66.0) % Eos # (Auto) (0-0.5) Absolute Lymphs (auto) (1.0-4.6) Absolute Monos (auto) (0.0-1.3) Lymphocytes % (24.0-44.0) % Monocytes % (0.0-12.0) % Eosinophils % (0.00-5.0) % Basophils % (0.0-0.4) % Absolute Granulocytes (1.4-6.9) Basophils # (0-0.4) PT (9.95-12.35) SECONDS INR (0.8-3.0) APTT (25.3-37.0) SECONDS D-Dimer (215-500) ng/mL Sodium 140 (137-145) mmol/L Potassium 3.7 (3.5-5.1) mmol/L Chloride 106 (98-107) mmol/L Carbon Dioxide 27 (22-30) mmol/L Anion Gap 11.3 (5-15) MEQ/L BUN 11 (7-17) mg/dL Creatinine 0.68 (0.52-1.04) mg/dL Estimated GFR > 60.0 ML/MIN Glucose 98 (74-106) mg/dL Calcium 8.9 (8.4-10.2) mg/dL Total Bilirubin 0.50 (0.2-1.3) mg/dL AST 22 (14-36) U/L ALT 19 (0-35) U/L Alkaline Phosphatase 88 (38-126) U/L Troponin I (0.000-0.034) ng/mL Serum Total Protein 6.6 (6.3-8.2) g/dL Albumin 3.9 (3.5-5.0) g/dL Amylase (30-110) U/L Lipase (23-300) U/L - Radiology Impressions Radiology Exams & Impressions: Radiology Procedures Category Date Time Status CHEST 1 VIEW (PORTABLE) Stat Exams 11/07/17 10:14 Completed CHEST WITH CONTRAST [CT] Stat Exams 11/07/17 11:49 Completed - Other Procedures and Tests Respiratory Therapy 11/07/17 19:00 EKG ROUTINE 11/08/17 07:31 Oxygen NASAL CANNULA 2 lpm 11/09/17 05:00 EKG ROUTINE 11/10/17 05:00 EKG ROUTINE Assessment/Plan (1) Chest pain Current Visit: Yes Status: Acute Qualifiers: Chest pain type: unspecified Qualified Code(s): R07.9 - Chest pain, unspecified Assessment & Plan: [place] ruled out but heaviness in the chest persists, will consult [facility]. Code(s): R07.9 - CHEST PAIN, UNSPECIFIED
[2017-11-08] MEDS ORDERED: Protonix 40MG Tablet PO SCH (10:00)
[2017-11-08] MEDS ORDERED: Ecotrin 325 MG PO SCH (10:00)
[2017-11-08] MEDS: Sodium Chloride 0.9% 10 ML FLUSH Syringe IV SCH ×2 (10:29→21:31)
[2017-11-08] MEDS: Protonix 40MG Tablet PO SCH (21:31)
[2017-11-08] MEDS ORDERED: Pepcid 20 MG PO SCH (22:00)
[2017-11-09] MEDS: Sodium Chloride 0.9% 10 ML FLUSH Syringe IV SCH ×3 (05:08→22:07)
[2017-11-09 05:52] LABS: Risk Ratio 4.6
[2017-11-09 06:23] LABS: TSH, 3RD Generation 0.916 mIU/L (0.47-4.68)
[2017-11-09 07:41] LABS: Appearance CLOUDY (CLEAR); Bacteria MANY /HPF (NEGATIVE); Bilirubin NEGATIVE (NEGATIVE); Blood 50 Ery/ul (0-5); Epithelial Cells MODERATE /HPF (FEW); Glucose NEGATIVE (NEGATIVE); Ketones NEGATIVE (NEGATIVE); Leukocyte Esterase 2+ (NEGATIVE); Nitrite POSITIVE (NEGATIVE); Protein,Urine Dip 30 (Negative); Urobilinogen NORMAL mg/dL (0-1); WBC >100 /HPF (0-5)
[2017-11-09] MEDS: TYLENOL 325 MG PO PRN ×2 (07:48→19:33)
[2017-11-09] MEDS: celeBREX 100 MG PO SCH (09:10)
[2017-11-09] MEDS: Ecotrin 325 MG PO SCH (09:10)
[2017-11-09] MEDS: ROCEPHIN 1 Gm-D5w 50 ml Bag** 1 G/50 ML IVPB IV SCH (09:12)
[2017-11-09] MEDS ORDERED: ECOTRIN 81 MG PO SCH (10:00)
--- NOTE | 2017-11-09 15:20 | PCM.DS ---
Discharge Summary Date of Admission: 11/07/17 14:08 Admitting Physician: BITA CANTU Consults: Consults on Case 11/08/17 07:58 Consult Cardiology ROUTINE Primary Care Provider: EDDIE MCCALLUM Allergies Allergies No Known Drug Allergies Allergy (Verified 11/07/17 09:55) Hospital Summary - Hospital Course Hospital Course: Pt admitted through ER with chest pain. D-dimer was elevated but CTA of the chest negative for PE (did reveal several thyroid cysts that may merit further imaging). Her chest pain continued even after [place] was ruled out with negative troponins, so [facility] was consulted. Dr. Farrell ordered an echocardiogram and would like pt to have an outpatient stress test. This morning pt is still c/o 3/10 chest pain. She does have a known hiatal hernia. Her echo was done. She is tolerating po, although her appetite is decreased. She had a HR down to 45 overnight, but most recorded vitals show HR in the 50s- 60s. When Dr. Farrell gets in this afternoon, I will consult with him and if ok to d/c home she will be discharged today. - Vitals & Intake/Output Vital Signs: Vital Signs Temperature 98.2 F 11/09/17 11:25 Pulse Rate 71 11/09/17 11:25 Respiratory Rate 18 11/09/17 11:25 Blood Pressure 140/89 11/09/17 11:25 O2 Sat by Pulse Oximetry 97 11/09/17 11:25 Oxygen-Last Documented O2 Percentage 2 Liters = 28% Intake & Output: Intake & Output 11/07/17 11/08/17 11/09/17 11/10/17 11:59 11:59 11:59 11:59 Intake Total 820 600 Output Total 801 1700 Balance 19 -1100 Weight 88.451 kg 94.4 kg 94.4 kg - Lab Result Diagrams: 11/08/17 05:43 11/08/17 05:43 Lab Results-Last 24 Hrs: Lab Results-Last 24 Hours 11/09/17 11/09/17 11/09/17 Range/Units 05:25 05:25 05:25 ESR 8 (0-20) mm/hr NT-Pro-B Natriuret Pep 132 (0-900) pg/mL Triglycerides 117 (30-150) mg/dL Cholesterol 192 (50-200) mg/dL LDL Cholesterol 99 (30-100) mg/dL HDL Cholesterol 42 (40-60) mg/dL Heart Disease Risk Ratio 4.6 Free T4 Direct 1.37 (0.76-1.46) ng/dL TSH 3rd Generation 0.916 (0.47-4.68) mIU/L Ur Collection Type Urine Color (YELLOW) Urine Appearance (CLEAR) Urine pH (5-6) Ur Specific Cement (1.005-1.025) Urine Protein (Negative) Urine Ketones (NEGATIVE) Urine Blood (0-5) [place]/ul Urine Nitrite (NEGATIVE) Urine Bilirubin (NEGATIVE) Urine Urobilinogen (0-1) mg/dL Ur Leukocyte Esterase (NEGATIVE) Urine Microscopic RBC (0-2) /HPF Urine Microscopic WBC (0-5) /HPF Ur Epithelial Cells (FEW) /HPF Urine Bacteria (NEGATIVE) /HPF Urine Glucose (NEGATIVE) mg/dL Specimen Received 11/09/17 Range/Units 06:36 ESR (0-20) mm/hr NT-Pro-B Natriuret Pep (0-900) pg/mL Triglycerides (30-150) mg/dL Cholesterol (50-200) mg/dL LDL Cholesterol (30-100) mg/dL HDL Cholesterol (40-60) mg/dL Heart Disease Risk Ratio Free T4 Direct (0.76-1.46) ng/dL TSH 3rd Generation (0.47-4.68) mIU/L Ur Collection Type CLEAN CATCH Urine Color YELLOW (YELLOW) Urine Appearance CLOUDY (CLEAR) Urine pH 5.0 (5-6) Ur Specific [place]ement 1.020 (1.005-1.025) Urine Protein 30 (Negative) Urine Ketones NEGATIVE (NEGATIVE) Urine Blood 50 (0-5) [place]/ul Urine Nitrite POSITIVE (NEGATIVE) Urine Bilirubin NEGATIVE (NEGATIVE) Urine Urobilinogen NORMAL (0-1) mg/dL Ur Leukocyte Esterase 2+ (NEGATIVE) Urine Microscopic RBC 5-10 (0-2) /HPF Urine Microscopic WBC >100 (0-5) /HPF Ur Epithelial Cells MODERATE (FEW) /HPF Urine Bacteria MANY (NEGATIVE) /HPF Urine Glucose NEGATIVE (NEGATIVE) mg/dL Specimen Received 11/09/17 0630 - Radiology Exams Ordered Rad Exams-Entire Visit: Radiology Procedures Category Date Time Status ECHO W/2D AND DOPPLER [US] Routine Exams 11/09/17 07:30 Taken - Procedures and Test Procedures and Tests throughout Hospitalization: Therapy Orders & Screens 11/07/17 19:00 EKG ROUTINE Comment: Diagnosis: chest pain 11/08/17 05:00 EKG ROUTINE Comment: Diagnosis: chest pain 11/08/17 06:52 EKG ROUTINE Comment: Diagnosis: chest pain 11/08/17 07:31 Oxygen NASAL CANNULA 2 lpm Comment: Diagnosis: chest pain 11/08/17 17:01 Cardiolite Stress Test-RT ONCE Comment: OUTPATIENT LEXISCAN STRESS TEST Reason For Exam: CHEST PAIN Diagnosis: chest pain 11/09/17 05:00 EKG ROUTINE Comment: Diagnosis: chest pain 11/10/17 05:00 EKG ROUTINE Comment: Diagnosis: chest pain Discharge Exam General Appearance: no apparent distress, alert, obese Neurologic Exam: oriented x 3, cooperative Skin Exam: normal color, warm, dry, No rash Respiratory Exam: normal breath sounds, lungs clear, No crackles/rales, No rhonchi, No wheezing Cardiovascular Exam: regular rate/rhythm, normal heart sounds, No murmur Gastrointestinal/Abdomen Exam: soft, normal bowel sounds, No tenderness Extremity Exam: No pedal edema, No swelling Final Diagnosis/Problem List - Final Discharge Diagnosis/Problem (1) Chest pain Current Visit: Yes Status: Acute Assessment & Plan: Atypical. I spoke with Dr. Farrell. Will recheck pt this afternoon, if still having significant pain (virgil with activity)would advise her pain could be due to hiatal hernia or could be cardiac; the only way to know for sure would be a heart catheterization. He would like her to definitely have a stress test ( cardiolyte) and is fine to get that here. Her echocardiogram was basically normal (EF 50%, mild mitral regurgitation, no effusion, no significant valvular dysfunction). (2) Hiatal hernia Current Visit: Yes Status: Acute Assessment & Plan: Noted to be "small" on CTA chest - Discharge Disposition: Home, Self-Care Condition: Fair Prescriptions: No Action Omeprazole 40 mg DAILY Celecoxib 200 mg DAILY Additional Instructions: Cardiolite Stress test scheduled on November 18 at 6:30 AM in Respiratory Department. Nothing to eat or drink after midnight prior to test. No caffeine for 24 hours prior to test. No beta blockers or calcium channel blockers for 48 hours prior to test. Follow up with Dr[facility] Farrell at [facility] after stress test. Follow up with: Andrew Farrell MD [CONSULTING PHYSICIAN] - Call for Appointment
[2017-11-09] MEDS: Imdur 30 MG PO SCH (16:11)
[2017-11-09] MEDS: Protonix 40MG Tablet PO SCH (22:06)
[2017-11-10] MEDS: MORPHINE SULFATE 4 MG INJ IV PRN (00:26)
[2017-11-10] MEDS: TYLENOL 325 MG PO PRN ×2 (05:12→11:04)
[2017-11-10] MEDS: Sodium Chloride 0.9% 10 ML FLUSH Syringe IV SCH (05:13)
[2017-11-10] MEDS: Imdur 30 MG PO SCH (09:01)
[2017-11-10] MEDS: ROCEPHIN 1 Gm-D5w 50 ml Bag** 1 G/50 ML IVPB IV SCH (09:01)
[2017-11-10] MEDS: Ecotrin 325 MG PO SCH (09:01)
[2017-11-10] MEDS: celeBREX 100 MG PO SCH (09:01)
--- NOTE | 2017-11-10 10:33 | PCM.DS ---
Discharge Summary Date of Admission: 11/07/17 14:08 Admitting Physician: BITA CANTU Consults: Consults on Case 11/08/17 07:58 Consult Cardiology ROUTINE Primary Care Provider: EDDIE MCCALLUM Allergies Allergies No Known Drug Allergies Allergy (Verified 11/07/17 09:55) Hospital Summary - Hospital Course Hospital Course: patient was admitted with chest pain, [place] ruled out but persisted. had cardiology consult, prelim report on echo ok. feeling better, has some headache from Imdur otherwise no chest pain at discharge, plan for lexiscan as outpatient. - Vitals & Intake/Output Vital Signs: Vital Signs Temperature 97.8 F 11/10/17 07:13 Pulse Rate 77 11/10/17 07:13 Respiratory Rate 16 11/10/17 07:13 Blood Pressure 123/59 11/10/17 07:13 O2 Sat by Pulse Oximetry 98 11/10/17 07:13 Oxygen-Last Documented O2 Percentage 2 Liters = 28% Intake & Output: Intake & Output 11/07/17 11/08/17 11/09/17 11/10/17 11:59 11:59 11:59 11:59 Intake Total 636 722 3373 Output Total 801 1700 2700 Balance 19 -1100 -1620 Weight 88.451 kg 94.4 kg 94.4 kg 94 kg - Lab Result Diagrams: 11/08/17 05:43 11/08/17 05:43 - Radiology Exams Ordered Rad Exams-Entire Visit: Radiology Procedures Category Date Time Status ECHO W/2D AND DOPPLER [US] Routine Exams 11/09/17 07:30 Taken - Procedures and Test Procedures and Tests throughout Hospitalization: Therapy Orders & Screens 11/07/17 19:00 EKG ROUTINE Comment: Diagnosis: chest pain 11/08/17 05:00 EKG ROUTINE Comment: Diagnosis: chest pain 11/08/17 06:52 EKG ROUTINE Comment: Diagnosis: chest pain 11/08/17 07:31 Oxygen NASAL CANNULA 2 lpm Comment: Diagnosis: chest pain 11/08/17 17:01 Cardiolite Stress Test-RT ONCE Comment: OUTPATIENT LEXISCAN STRESS TEST Reason For Exam: CHEST PAIN Diagnosis: chest pain 11/09/17 05:00 EKG ROUTINE Comment: Diagnosis: chest pain 11/10/17 05:00 EKG ROUTINE Comment: Diagnosis: chest pain Discharge Exam General Appearance: no apparent distress, alert Respiratory Exam: normal breath sounds, lungs clear, No respiratory distress Cardiovascular Exam: regular rate/rhythm, normal heart sounds Gastrointestinal/Abdomen Exam: soft, No tenderness, No mass Extremity Exam: normal inspection, normal range of motion Final Diagnosis/Problem List - Final Discharge Diagnosis/Problem (1) Chest pain Current Visit: Yes Status: Acute Assessment & Plan: [place] ruled out, will have OP lexiscan and f/u with [facility], continue Imdur - Discharge Disposition: Home, Self-Care Condition: Fair Prescriptions: New Sulfamethoxazole/Trimethoprim [Bactrim Ds Tablet] 1 each PO BID #10 tablet Aspirin EC 81 mg [Ecotrin 81 mg] 81 mg PO DAILY #30 tablet Isosorbide Mononitrate 30 mg [Imdur 30 MG] 30 mg PO DAILY #30 tab Continue Omeprazole 40 mg DAILY Celecoxib 200 mg DAILY Additional Instructions: Cardiolite Stress test scheduled on November 18 at 6:30 AM in Respiratory Department. Nothing to eat or drink after midnight prior to test. No caffeine for 24 hours prior to test. No beta blockers or calcium channel blockers for 48 hours prior to test. Follow up with Dr. Farrell at [facility] after stress test. Follow up with: Andrew Farrell MD [CONSULTING PHYSICIAN] - Call for Appointment
--- NOTE | 2017-11-10 11:09 | ECHO ---
DATE OF TEST: 11/09/2017 INDICATION: Chest pain. FINDINGS: 1) Normal left ventricular wall thickness and cavity size with normal left ventricular systolic function. Overall left ventricular ejection fraction is 55%. No wall motion abnormalities were noted. The inflow Doppler examination is normal for patient's age. Right ventricle is normal in size and systolic function. 2) Atria within normal limits in size. 3) Borderline mitral valve prolapse with mild 1+ mitral regurgitation. Tricuspid valve is structurally normal with trace tricuspid regurgitation and estimated PA systolic pressure in normal range. The aortic valve appears to be trileaflet with normal valve excursion. NO aortic insufficiency was noted. Pulmonic valve is grossly normal. 4) No pericardial effusion. IMPRESSION: 1) NORMAL LEFT VENTRICULAR SIZE AND SYSTOLIC FUNCTION. OVERALL LEFT VENTRICULAR EJECTION FRACTION IS 55%. 2) MILD 1+ MITRAL REGURGITATION.
[2017-11-10 11:13] VITALS: BP 140/79; PULSE 83; O2SAT 97
== END 2017-11-10 11:30 | disposition home or self-care (01) ==
LOC: ED 09:41 → MED SURG 14:08
PROVIDERS: ADMIT Family Medicine; ATTEND Family Medicine
DX: R07.89 Other chest pain (principal); K44.9 Diaphragmatic hernia without obstruction or gangrene; M19.90 Unspecified osteoarthritis, unspecified site; K21.9 Gastro-esophageal reflux disease without esophagitis
CPT/HCPCS: 36000; 36415; 71045; 71260; 80053; 80061; 81000; 82150; 83690; 83721; 83880; 84439; 84443; 84484; 85025; 85379; 85610; 85652; 85730; 87077; 87086; 87186; 93005; 93041; 93268; 93306; 94760; 96374; 96375; 99285; J0696; J2270; J2405; Q3014; A9270-GY; G0378

== ENCOUNTER 2018-01-17 08:20 | Day surgery (SDC) | payer BC ==
[~2018-01-17 08:20] MED LIST: Lactated Ringers 1,000 ML IV ONE; Lactated Ringers 1,000 ML IV SCH
[2018-01-17] MEDS ORDERED: DIPRIVAN 200 MG/20 ML IV ONE ×2 (08:21)
[2018-01-17] MEDS ORDERED: Ketamine HCl 50 MG/ML IV ONE ×2 (08:21)
--- NOTE | 2018-01-17 08:37 | HP ---
DATE OF SURGERY: 01/17/2018 HISTORY OF PRESENT ILLNESS: The patient is a 53 year-old problem with solids getting stuck upper esophagus, history of hiatal hernia in the past, some epigastric pain at times. PAST MEDICAL HISTORY: Arthritis and some reflux. PAST SURGICAL HISTORY: Cholecystectomy in the past. MEDICATIONS: Protonix, Celebrex, Zantac. ALLERGIES: NKDA. FAMILY HISTORY: Cancer, heart disease, hypertension, diabetes. SOCIAL HISTORY: Denies smoking but she is exposed to secondhand smoke according to the patient. She reports occasion alcohol use denies abuse. REVIEW OF SYSTEMS: Twelve systems reviewed per admission assessment. No chest pain or palpitations other systems negative or noncontributory as above and per preadmission questionnaire. PHYSICAL EXAMINATION: GENERAL: No acute distress. HEENT: Sclerae nonicteric. NECK: No JVD. CHEST: Equal excursion, nonlabored breathing. CVS: Regular rate and rhythm. ABDOMEN: Soft, mild tenderness epigastrium. No peritoneal signs. EXTREMITIES: No significant edema. NEURO: Alert, moving extremities symmetrically. No gross motor deficits noted. IMPRESSION: Dysphagia upper esophagus as well as epigastric pain. I feel the patient will benefit from EGD possible biopsy, possible dilatation pending operative findings. Risks and benefits explained in detail including but not limited to bleeding or infection, small risk of bowel injury or perforation possibly requiring open procedure, risk of missed or nondiagnosis or incomplete exam possibly requiring barium swallow, other studies or procedures. She understands as well as possible dilatation, risk of perforation. She understands if dilatation does improve her swallowing sometimes it needs to be repeated. She also understands this is more of a functional than neurological issue that dilatation may not improve swallowing that she may need further work up and/or testing or other procedures. She understands and agrees to the planned procedure and will proceed with EGD, possible biopsy, possible dilatation as an outpatient.
[2018-01-17 11:57] VITALS: O2SAT 100
[2018-01-17 11:59] VITALS: BP 123/71; PULSE 58
--- NOTE | 2018-01-17 15:47 | OP ---
SURGERY DATE/TIME: 01/17/2018 1033 PREOPERATIVE DIAGNOSES: Dysphagia. POSTOPERATIVE DIAGNOSES: 1) Minimal gastritis. 2) Small sliding hiatal hernia. 3) Very short segment less than 5 mm possible early Smith's esophagus versus distal gastroesophagitis biopsy pending. 4) Symptomatic proximal esophageal narrowing and spasm. PROCEDURES: 1) EGD with cold biopsy of the antrum to evaluate for Helicobacter pylori. 2) Cold biopsy distal esophagus to evaluate for early Smith's esophagus. 3) Proximal esophageal dilatation (size 20 balloon). SURGEON: Dr. Aurelio Vallejo. ANESTHESIA: MAC. ESTIMATED BLOOD LOSS: Minimal. INDICATIONS: As noted above. Risks and benefits explained in detail and not limited to and consent obtained. DESCRIPTION OF PROCEDURE AND FINDINGS: The patient is taken to the operating room. MAC anesthesia introduced. After official time out and no disagreement with planned procedure, bite block positioned. Video gastroscope passed down the esophagus. There was a narrowed area in the proximal esophagus. No obvious mass to biopsy. There was just a symptomatic narrowed area. It was felt that he would benefit from dilatation at the end of the procedure. The scope was able to be passed back through here through the stomach to the patent pylorus, to the junction of the second and third portion of the duodenum. Duodenum and duodenal bulb grossly unremarkable. Back in the stomach she had some mild erythema in the stomach. Question of very early mild gastritis versus gastropathy. A cold biopsy taken to evaluate for Helicobacter pylori. There was no evidence of any ulcers, masses or other mucosal lesions. On retroflex in the gastroesophageal junction there was small hiatal hernia that did not appear to warrant surgical intervention at this point. The scope was straightened. Gastroesophageal junction was about 38 cm. There was a little fingerlette of fingerlette and a half of short segment of less than 5 mm with question of early Smith's versus just normal variation of the gastroesophageal junction versus distal gastroesophagitis. Cold biopsy taken to evaluate for Helicobacter pylori. Scant ooze watched for a few seconds and had good hemostasis. Remainder of the esophagus no obvious mucosal lesions up to the proximal narrowed esophagus in the proximal esophagus. No signs of any masses to biopsy in this area. It was felt that this would benefit from dilatation given her symptom complaints. Scope passed back down the stomach. A 20 balloon catheter carefully inserted under direct vision of the stomach and pulled back up to the proximal esophagus. Symptomatic narrowed area and spasm. It was gradually inflated first stage 45 seconds, second stage 45 seconds and final stage size 20 balloon dilator for 2 minutes. The balloon was then released and withdrawn and passed off. The scope was much more easily passed through this area. It was passed back down in the stomach slowly and carefully withdrawn. There was no evidence of any full thickness issues or injury secondary to balloon dilatation and biopsy. The patient tolerated the procedure well. There were no immediate complications. Findings discussed with the family out in the waiting area. She was transferred to the recovery room in stable condition.
== END 2018-01-17 11:50 | disposition home or self-care (01) ==
LOC: SDC 08:20
PROVIDERS: ATTEND Surgery
DX: K29.70 Gastritis, unspecified, without bleeding (principal); K22.70 Barrett's esophagus without dysplasia; K20.9 Esophagitis, unspecified; R13.10 Dysphagia, unspecified; K22.2 Esophageal obstruction; K22.4 Dyskinesia of esophagus; M19.90 Unspecified osteoarthritis, unspecified site; K21.9 Gastro-esophageal reflux disease without esophagitis; Z79.899 Other long term (current) drug therapy
CPT/HCPCS: 87081; 88305; 94250; C1726; J2704

== ENCOUNTER 2018-07-03 13:50 | Emergency (ER) | payer BC ==
[2018-07-03 14:38] LABS: BASOPHIL % 0.6 % (0.0-0.4); Basophil (Absolute #) 0.03 (0-0.4); Eosinophil % 5.7 % (0.00-5.0); Eosinophil (Absolute #) 0.31 (0-0.5); Granulocytes % 44.1 % (36.0-66.0); Hematocrit 43.5 % (35-47); Hemoglobin 14.3 gm/dl (12.0-16.0); Lymphocyte (Absolute #) 2.09 (1.0-4.6); Lymphocytes % 38.4 % (24.0-44.0); Mean Cell Volume 93.3 fl (78-100); Mean Corpuscular Hemoglobin 30.7 pg (26-32); Mean Corpuscular Hgb Concent. 32.9 g/dl (32-36); Mean Platelet Volume 10.4 fl (6-9.5); Monocyte (Absolute #) 0.61 (0.0-1.3); Monocytes % 11.2 % (0.0-12.0); Platelet Count 382 K/mm3 (150-450); Red Blood Count 4.66 M/mm3 (4.1-5.4); Red Cell Distribution Width 13.3 % (11.5-14.0); White Blood Count 5.4 K/mm3 (4.0-10.5)
[2018-07-03 14:49] LABS: ALBUMIN 4.3 g/dL (3.5-5.0); ALKALINE PHOSPHATASE 91 U/L (38-126); ANION GAP 11.5 MEQ/L (5-15); BLOOD UREA NITROGEN 15 mg/dL (7-17); CHLORIDE 105 mmol/L (98-107); Calcium 9.2 mg/dL (8.4-10.2); Carbon Dioxide 28 mmol/L (22-30); Creatinine 1 0.73 mg/dL (0.52-1.04); Glucose 89 mg/dL (74-106); Potassium 3.8 mmol/L (3.5-5.1); SGOT/AST 25 U/L (14-36); SGPT/ALT 20 U/L (0-35); SODIUM 141 mmol/L (137-145); Total Protein 7.5 g/dL (6.3-8.2)
[2018-07-03 14:52] VITALS: O2SAT 98
--- NOTE | 2018-07-03 15:27 | ERPHSYRPT ---
- History of Present Illness Historian: patient Exam Limitations: no limitations Patient Subjective Stated Complaint: pain in left lower rib area x 2 days.. no known injury. pain with movement. denies any injury. states has had similar pain which was pleurisy. no cough or fever. Triage Nursing Assessment: alert and with c/o left lower ribs x 2 days. has had simililar episode that was pleurisy. denies fever. pain with movement and when she lays on that side. Physician History: Pt is a 53 y/o female that presented to the ER with pain in her L lateral chest. Pt states, the pain is radiating to her left back, and L chest, and is worse with cough, and movement in bed. Pt did not take any pain meds at home, and stated that the pain is stable for the last four days. No F/C/S. No wheezing. No SOB. Pt is coughing, and has no sputum. No N/V/D or abdominal pain. Timing/Duration: day(s) Activities at Onset: none (worse with cough and moving and lying on the left lateral chest) Quality: aching, sharpness Location: other (around the rib from back to sternum on the left lower chest) Severity of Pain-Max: moderate Severity of Pain-Current: moderate Modifying Factors: Improves With: breathing, coughing, palpation, change in position Associated Symptoms: denies symptoms Aspirin Treatment Today: no aspirin today Allergies/Adverse Reactions: No Known Drug Allergies Allergy (Verified 01/12/18 12:21) Home Medications: Celecoxib 200 mg DAILY 11/07/17 [History] Omeprazole 40 mg DAILY 11/07/17 [History] Ranitidine HCl [Zantac] 300 mg PO HS 01/12/18 [History] Beta-Carotene(A) W-C & E/Min [Ocuvite Tablet] 1 tab PO DAILY 01/17/18 [ History] Hx Tetanus, Diphtheria Vaccination/Date Given: Yes Hx Influenza Vaccination/Date Given: No Hx Pneumococcal Vaccination/Date Given: No - Review of Systems Constitutional: No Fever, No Chills Eyes: No Symptoms Ears, Nose, & Throat: No Symptoms Respiratory: Cough Cardiac: Chest Pain (around the rib on the lower lateral chest), No Edema, No Syncope Abdominal/Gastrointestinal: No Abdominal Pain, No Nausea, No Vomiting, No Diarrhea Genitourinary Symptoms: No Dysuria Musculoskeletal: No Neck Pain Neurological: No Dizziness, No Focal Weakness, No Sensory Changes - Past Medical History Pertinent Past Medical History: Yes Neurological History: No Pertinent History ENT History: No Pertinent History Cardiac History: Other Respiratory History: No Pertinent History Endocrine Medical History: No Pertinent History Musculoskeletal History: Osteoarthritis GI Medical History: GERD, Gallbladder Disease, Hernia, Other History: No Pertinent History Psycho-Social History: No Pertinent History Female Reproductive Disorders: No Pertinent History Other Medical History: back pain. recent chest pain admission 10/2017 - Past Surgical History Past Surgical History: Yes Neuro Surgical History: No Pertinent History Cardiac: No Pertinent History Respiratory: No Pertinent History Gastrointestinal: Appendectomy, Cholecystectomy Genitourinary: No Pertinent History Musculoskeletal: No Pertinent History Female Surgical History: Tubal Ligation Other Surgical History: T&A, - Social History Smoking Status: Never smoker Exposure to second hand smoke: No Drug Use: none Patient Lives Alone: No - Female History Hx Now: No - Nursing Vital Signs Nursing Vital Signs: Initial Vital Signs Temperature 97.8 F 07/03/18 14:06 Pulse Rate 58 L 07/03/18 14:06 Respiratory Rate 18 07/03/18 14:06 Blood Pressure 124/67 07/03/18 14:06 O2 Sat by Pulse Oximetry 100 07/03/18 14:06 Pain Scale Pain Intensity 3 - Physical Exam General Appearance: no apparent distress, alert Eye Exam: PERRL/EOMI, eyes nml inspection Ears, Nose, Throat Exam: normal ENT inspection, moist mucous membranes Neck Exam: normal inspection, non-tender, supple, full range of motion Respiratory Exam: normal breath sounds, lungs clear, other (pain with palpation of the left lower rib), No respiratory distress Cardiovascular Exam: regular rate/rhythm, normal heart sounds Gastrointestinal/Abdomen Exam: soft, No tenderness, No mass Extremity Exam: normal inspection, normal range of motion Neurologic Exam: alert, oriented x 3, cooperative, normal mood/affect, sensation nml, No motor deficits SpO2: 98 - Course Nursing assessment & vital signs reviewed: Yes EKG Interpreted by Me: RATE, Sinus Everardo, NORMAL ST-T - Radiology Exams Chest X-ray Interpretation: Interpreted by me (No rib fx, asnd no PNA) Ordered Tests: Active Orders 24 hr Category Date Time Status Card Hanger STAT Care 07/03/18 14:14 Active EKG-ER Only STAT Care 07/03/18 14:13 Active IV Insertion STAT Care 07/03/18 14:13 Active CHEST 2 VIEWS (PA AND LAT) Stat Exams 07/03/18 14:14 Taken RIBS UNILATERAL Stat Exams 07/03/18 14:30 Taken CBC W DIFF Stat Lab 07/03/18 14:30 Completed CMP Stat Lab 07/03/18 14:30 Completed D-DIMER QUANTITATION Stat Lab 07/03/18 14:30 Completed TROPONIN Q3H Lab 07/03/18 14:30 Completed TROPONIN Q3H Lab 07/03/18 17:15 Ordered TROPONIN Q3H Lab 07/03/18 20:15 Ordered TROPONIN Q3H Lab 07/03/18 23:15 Ordered TROPONIN Q3H Lab 07/04/18 02:15 Ordered Lab/Rad Data: Laboratory Result Diagrams 07/03/18 14:30 07/03/18 14:30 Laboratory Results 07/03/18 07/03/18 07/03/18 Range/Units 14:30 14:30 14:30 WBC (4.0-10.5) K/mm3 RBC (4.1-5.4) M/mm3 Hgb (12.0-16.0) gm/dl Hct (35-47) % MCV (78-100) fl MCH (26-32) pg MCHC (32-36) g/dl RDW (11.5-14.0) % Plt Count (150-450) K/mm3 MPV (6-9.5) fl Gran % (36.0-66.0) % Eos # (Auto) (0-0.5) Absolute Lymphs (auto) (1.0-4.6) Absolute Monos (auto) (0.0-1.3) Lymphocytes % (24.0-44.0) % Monocytes % (0.0-12.0) % Eosinophils % (0.00-5.0) % Basophils % (0.0-0.4) % Absolute Granulocytes (1.4-6.9) Basophils # (0-0.4) D-Dimer 406 (215-500) ng/mL Sodium 141 (137-145) mmol/L Potassium 3.8 (3.5-5.1) mmol/L Chloride 105 (98-107) mmol/L Carbon Dioxide 28 (22-30) mmol/L Anion Gap 11.5 (5-15) MEQ/L BUN 15 (7-17) mg/dL Creatinine 0.73 (0.52-1.04) mg/dL Estimated GFR > 60.0 ML/MIN Glucose 89 (74-106) mg/dL Calcium 9.2 (8.4-10.2) mg/dL Total Bilirubin 0.70 (0.2-1.3) mg/dL AST 25 (14-36) U/L ALT 20 (0-35) U/L Alkaline Phosphatase 91 (38-126) U/L Troponin I < 0.012 (0.000-0.034) ng/mL Serum Total Protein 7.5 (6.3-8.2) g/dL Albumin 4.3 (3.5-5.0) g/dL 07/03/18 Range/Units 14:30 WBC 5.4 (4.0-10.5) K/mm3 RBC 4.66 (4.1-5.4) M/mm3 Hgb 14.3 (12.0-16.0) gm/dl Hct 43.5 (35-47) % MCV 93.3 (78-100) fl MCH 30.7 (26-32) pg MCHC 32.9 (32-36) g/dl RDW 13.3 (11.5-14.0) % Plt Count 382 (150-450) K/mm3 MPV 10.4 H (6-9.5) fl Gran % 44.1 (36.0-66.0) % Eos # (Auto) 0.31 (0-0.5) Absolute Lymphs (auto) 2.09 (1.0-4.6) Absolute Monos (auto) 0.61 (0.0-1.3) Lymphocytes % 38.4 (24.0-44.0) % Monocytes % 11.2 (0.0-12.0) % Eosinophils % 5.7 H (0.00-5.0) % Basophils % 0.6 (0.0-0.4) % Absolute Granulocytes 2.40 (1.4-6.9) Basophils # 0.03 (0-0.4) D-Dimer (215-500) ng/mL Sodium (137-145) mmol/L Potassium (3.5-5.1) mmol/L Chloride (98-107) mmol/L Carbon Dioxide (22-30) mmol/L Anion Gap (5-15) MEQ/L BUN (7-17) mg/dL Creatinine (0.52-1.04) mg/dL Estimated GFR ML/MIN Glucose (74-106) mg/dL Calcium (8.4-10.2) mg/dL Total Bilirubin (0.2-1.3) mg/dL AST (14-36) U/L ALT (0-35) U/L Alkaline Phosphatase (38-126) U/L Troponin I (0.000-0.034) ng/mL Serum Total Protein (6.3-8.2) g/dL Albumin (3.5-5.0) g/dL - Progress Progress: improved Air Movement: good Progress Note: 07/03/18 15:30 Pt had CXR, and labs. Troponin was negative, as well as D Dimer. EKG was unchanged, and there is no leukocytosis. Pt was informed that she probably has muscle spasm vs costochondritis. She was advised to take Tylenol and Ibuprofen OTC for pain. Pt should f/u with PCP. Blood Culture(s) Obtained: No Antibiotics given: No Discussed with : Gilberto Will see patient in: office Counseled pt/family regarding: need for follow-up - Departure Time of Disposition: 15:32 Departure Disposition: Home Clinical Impression: Muscle spasm Condition: Stable Critical Care Time: No Referrals: EDDIE MCCALLUM MD [Primary Care Provider] - Additional Instructions: Use tylenol and Ibuprofen OTC for pain. F/U with PCP this week.
[2018-07-03 16:02] VITALS: BP 150/83; PULSE 56
--- NOTE | 2018-07-03 20:59 | XRAY ---
Indication: Left chest pain. No known injury. Comparison: November 07, 2017. PA/lateral chest again demonstrates normal heart and lungs with a few incidental calcified granulomas. Bony thorax intact again with minimal degenerative changes. No new/acute findings.
--- NOTE | 2018-07-03 20:59 | XRAY ---
Indication: Chest pain. No known injury. Comparison: None 2 views of the left ribs demonstrates mild AC degenerative arthropathy, minimal multilevel degenerative spondylosis, and cholecystectomy clips. No other bony, articular, or soft tissue abnormalities.
== END 2018-07-03 16:03 | disposition home or self-care (01) ==
LOC: ED 13:50
DX: M62.838 Other muscle spasm (principal); R07.81 Pleurodynia; F41.9 Anxiety disorder, unspecified; M19.90 Unspecified osteoarthritis, unspecified site; Z79.899 Other long term (current) drug therapy
CPT/HCPCS: 36415; 71046; 71100; 80053; 84484; 85025; 85379; 93005; 93041; 99284

== ENCOUNTER 2019-09-17 08:53 | Emergency (ER) | payer BC ==
[2019-09-17 09:12] VITALS: BP 142/82; PULSE 74; O2SAT 99
--- NOTE | 2019-09-17 09:26 | ERPHSYRPT ---
- History of Present Illness Time Seen by Provider: 09/17/19 09:22 Source: patient Exam Limitations: no limitations Patient Subjective Stated Complaint: left hand swelling due to a bite Triage Nursing Assessment: Pt drove self to the ER, vitals wnl, minor swelling to left hand with a small red bump in the middle that the pt states was there yesterday and she had been scratching it and placing cortisone cream on it but woke with it swollen today, pulses normal, pt rates pain 5/10, no other swelling , no difficulty breathing, doesn't appear to be in any distress Physician History: left hand swelling due to a bite minor swelling to left hand with a small red bump in the middle that the pt states was there yesterday and she had been scratching it and placing cortisone cream on it but woke with it swollen today, pulses normal, pt rates pain 5/10, no other swelling, no difficulty breathing, doesn't appear to be in any distress Occurred: yesterday Severity of Pain-Max: mild Severity of Pain-Current: mild Allergies/Adverse Reactions: No Known Drug Allergies Allergy (Verified 09/17/19 09:11) Home Medications: Celecoxib 200 mg DAILY 11/07/17 [History] Cyclobenzaprine HCl 10 mg PO TID 09/17/19 [History] PANTOPRAZOLE 40 mg Tablet [Protonix 40MG Tablet] 40 mg PO DAILY 09/17/19 [ History] Hx Tetanus, Diphtheria Vaccination/Date Given: Yes Hx Influenza Vaccination/Date Given: No Hx Pneumococcal Vaccination/Date Given: No Travel Risk - International Travel Have you traveled outside of the country in past 3 weeks: No Have you or anyone close to you been diagnosed with or: No Do your reside in a community with a known COVID-19 case?: Yes If Yes where:: [place] - Coronavirus Screening Has patient experienced Coronavirus symptoms: No - Review of Systems Constitutional: No Symptoms Eyes: No Symptoms Ears, Nose, & Throat: No Symptoms Respiratory: No Symptoms Cardiac: No Symptoms Abdominal/Gastrointestinal: No Symptoms Genitourinary Symptoms: No Symptoms Musculoskeletal: No Symptoms Skin: Induration Neurological: No Symptoms - Past Medical History Pertinent Past Medical History: Yes Neurological History: No Pertinent History ENT History: No Pertinent History Cardiac History: Other Respiratory History: No Pertinent History Endocrine Medical History: No Pertinent History Musculoskeletal History: Osteoarthritis GI Medical History: GERD, Gallbladder Disease, Hernia, Other History: No Pertinent History Psycho-Social History: No Pertinent History Female Reproductive Disorders: No Pertinent History Other Medical History: back pain. recent chest pain admission 10/2017 - Past Surgical History Past Surgical History: Yes Neuro Surgical History: No Pertinent History Cardiac: No Pertinent History Respiratory: No Pertinent History Gastrointestinal: Appendectomy, Cholecystectomy Genitourinary: No Pertinent History Musculoskeletal: No Pertinent History Female Surgical History: Tubal Ligation Other Surgical History: T&A, - Social History Smoking Status: Never smoker Exposure to second hand smoke: Yes Drug Use: none Patient Lives Alone: No - Female History Hx Now: No - Nursing Vital Signs Nursing Vital Signs: Initial Vital Signs Temperature 98.1 F 09/17/19 09:05 Pulse Rate 74 09/17/19 09:05 Blood Pressure 142/82 09/17/19 09:05 O2 Sat by Pulse Oximetry 99 09/17/19 09:05 Pain Scale Pain Intensity 5 - Physical Exam General Appearance: no apparent distress Eyes, Ears, Nose, Throat Exam: normal ENT inspection Neck Exam: normal inspection Cardiovascular/Respiratory Exam: chest non-tender Abdominal Exam: non-tender Shoulder Exam: normal inspection Elbow/Forearm Exam: normal inspection Wrist Exam: normal inspection Hand Exam: normal inspection, soft tissue tenderness (left hand) SpO2: 99 - Course Nursing assessment & vital signs reviewed: Yes - Progress Progress: unchanged Counseled pt/family regarding: diagnosis, need for follow-up - Departure Departure Disposition: Home Clinical Impression: Cellulitis of left hand excluding fingers and thumb Condition: Stable Critical Care Time: No Referrals: NEO QUINTANILLA [Primary Care Provider] - Instructions: Cellulitis and Erysipelas (Skin Infections) Additional Instructions: Discharge/Care Plan TATIANNA CRUZ was seen on 09/17/19 in the Emergency Room. The patient was counseled regarding Diagnosis,Lab results, Imaging studies, need for follow up and when to return to the Emergency Room. Prescriptions given: Discharge Note I have spoken with the patient and/or caregivers. I have explained the patient' s condition, diagnosis and treatment plan based on the information available to me at this time. I have answered the patient's and/or caregiver's questions and addressed any concerns. The patient and/or caregivers have as good understanding of the patient's diagnosis, condition and treatment plan as can be expected at this point. The vital signs have been stable. The patient's condition is stable and appropriate for discharge from the emergency department. The patient will pursue further outpatient evaluation with the primary care physician or other designated or consulting physician as outlined in the discharge instructions. The patient and/or caregivers are agreeable to this plan of care and follow-up instructions have been explained in detail. The patient and/or caregivers have received these instruction. The patient/and or caregivers are aware that any significant change in condition or worsening of symptoms should prompt an immediate return to this or the closest emergency department or call 911. Prescriptions: Amoxicillin 500 mg Cap [Amoxil 500 mg] 500 mg PO TID #30 capsule Methylprednisolone Packet [Medrol Dosepack] 4 mg PO UD #30 packet
== END 2019-09-17 09:35 | disposition home or self-care (01) ==
LOC: ED 08:53
DX: L03.114 Cellulitis of left upper limb (principal); W57.XXXA Bitten or stung by nonvenomous insect and other nonvenomous arthropods, initial encounter; Y93.9 Activity, unspecified; Y92.9 Unspecified place or not applicable
CPT/HCPCS: 99283